=== PATIENT | male | born 1950 | race Caucasian/White ===

== ENCOUNTER → 2017-09-18 | Outpatient (CLI) | payer OTHER | END | disposition home or self-care (01) | LOC: KCIC MRI 10:01 | DX: M75.122 Complete rotator cuff tear or rupture of left shoulder, not specified as traumatic (principal); M75.22 Bicipital tendinitis, left shoulder; M19.012 Primary osteoarthritis, left shoulder; M25.712 Osteophyte, left shoulder; M62.512 Muscle wasting and atrophy, not elsewhere classified, left shoulder; M25.412 Effusion, left shoulder; Z91.81 History of falling | CPT/HCPCS: 73221 ==

== ENCOUNTER → 2018-09-08 | Outpatient (CLI) | payer MEDICAID, OTHER | END | disposition home or self-care (01) | LOC: LAB 09:30 | PROVIDERS: ATTEND Psychiatry & Neurology Neurology with Special Qualifications in Child Neurology | DX: F03.90 Unspecified dementia, unspecified severity, without behavioral disturbance, psychotic disturbance, mood disturbance, and anxiety (principal) | CPT/HCPCS: 36415; 82607; 82746; 84443; 85651 ==

== ENCOUNTER → 2018-09-09 | Outpatient (CLI) | payer MEDICAID, OTHER ==
--- NOTE | 2018-09-09 10:07 | RAD ---
CT HEAD WO CONTRAST Clinical indications: DEMENTIA NO PRIOR Technique: Noncontrast axial cross sectional scanning of the head was performed. PQRS compliance Statement One or more of the following individualized dose reduction techniques were utilized for this study: 1. Automated exposure control 2. Adjustment of the mA and/or kV according to patient size 3. Use of iterative reconstruction technique Findings: No acute intracranial hemorrhage or midline shift or mass-effect or hydrocephalus or extra-axial fluid collection is seen. No focal hypodense area or sulci effacement is seen to indicate an acute infarct or edema radiographically. No significant atrophy is evident given the patient's age. No skull fracture or pneumocephalus is seen. No opacification of the mastoid sinuses or middle ear cavities is seen. There is mild mucosal thickening of the maxillary and ethmoid sinuses bilaterally. The maxillary sinuses are not completely seen in this study. Impression: No acute intracranial abnormality is seen. Electronically signed by: Ian Galvan MD (09/09/2018 10:03 AM) [id number]
== END | disposition home or self-care (01) ==
LOC: CT 14:55
PROVIDERS: ATTEND Psychiatry & Neurology Neurology with Special Qualifications in Child Neurology
DX: F03.90 Unspecified dementia, unspecified severity, without behavioral disturbance, psychotic disturbance, mood disturbance, and anxiety (principal)
CPT/HCPCS: 70450

== ENCOUNTER 2019-12-01 16:19 | Emergency (ER) | payer MEDICAID, OTHER ==
[~2019-12-01] VITALS: Ht 162.6 cm; Wt 64.0 kg
--- NOTE | 2019-12-01 17:03 | PHYS DOC ---
General Adult EDM: Chief Complaint: LACERATION/AVULSION HPI: HPI: Patient is a 69 year old male who presents to the ED today with right forearm laceration, patient reports working with a saw that accidentally cut him. Patient is right-handed. 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 [] Musculoskeletal: Denies back pain or joint pain. [] Integument: Reports right forearm laceration Neurologic: Denies headache, focal weakness or sensory changes. [] Psychiatric: Denies depression or anxiety. [] Heart Score: Risk Factors: Risk Factors: DM, Current or recent (<one month) smoker, HTN, HLP, family history of CAD, obesity. Risk Scores: Score 0 - 3: 2.5% MACE over next 6 weeks - Discharge Home Score 4 - 6: 20.3% MACE over next 6 weeks - Admit for Clinical Observation Score 7 - 10: 72.7% MACE over next 6 weeks - Early Invasive Strategies Physical Exam: PE: Constitutional: Well developed, well nourished, no acute distress, non-toxic appearance. [] Skin: Right forearm with a laceration in L-type orientation approximately 7 centimeters long, there is no obvious tendon involvement, patient able to flex and extend all the fingers on the right hand. Adequate radial, medial, ulnar sensation to the right hand. +2 right radial pulse. Cap refill less than 2 seconds right fingers. Back: No tenderness, no CVA tenderness. [] Extremities: No tenderness, no cyanosis, no clubbing, ROM intact, no edema. [] Neurologic: Alert and oriented X 3, normal motor function, normal sensory function, no focal deficits noted. [] Psychologic: Affect normal, judgement normal, mood normal. [] EKG: EKG: [] Radiology/Procedures: Radiology/Procedures: Laceration/Wound Repair Wound Location: Right forearm Wound's Depth, Shape: L Wound Length (cm): Approximately 7 cm Wound Explored: clean Irrigated w/ Saline (ccs): 100 Betadine Prep?: Y Anesthesia: 1% of buffered lidocaine cream Volume Anesthetic (ccs): Approx. 15cc Wound Repaired With: Vicryl Suture Size/Type: 4.0 Number of Sutures: 2 internal interrupted sutures and 17 external interrupted sutures Progress :wound was covered with non stick dressing Course & Med Decision Making: Course & Med Decision Making Pertinent Labs and Imaging studies reviewed. (See chart for details) This is a 69-year-old male patient with right forearm laceration that was closed by me as noted in procedures, wound care instructions and return precautions provided. Tetanus updated Dragon Disclaimer: Dragon Disclaimer: This electronic medical record was generated, in whole or in part, using a voice recognition dictation system. Departure Departure Impression: Primary Impression: Forearm laceration Qualified Codes: S51.811A - Laceration without foreign body of right forearm, initial encounter Disposition: HOME, SELF-CARE Condition: STABLE Referrals: CECILIO DICKERSON MD (PCP) follow up with with your doctor in 1 week Patient Instructions: Laceration Care, Adult, [id number] Additional Instructions: You have dissolveable sutures, please keep the laceration clean and dry. Monitor the area for signs of infection including increased redness, warmth, yellow drainage from the area and return to the ED if they occur see your own doctor. CHUYITA SCHAFFER APRN Dec 01, 2019 17:03
--- NOTE | 2019-12-01 17:17 | RAD ---
Exam: Right forearm 2 views INDICATION: Laceration, cut by saw TECHNIQUE: Frontal and lateral views of the right forearm Comparisons: None FINDINGS: Bone mineralization is normal. No acute or healed fractures. Soft tissue laceration along the palmar aspect of the mid forearm. Joint spaces are well-maintained. IMPRESSION: Laceration as described above. No underlying osseous abnormality or radiopaque foreign body identified Electronically signed by: Shruthi Castañeda MD (12/01/2019 5:15 PM) [id number]
[2019-12-01] MEDS ORDERED: LIDOCAINE 1% Multi-Dose 20 ML VIAL. INJ ONE (17:30)
[2019-12-01] MEDS ORDERED: DIPH,PERTUSS(ACELL),TET VAC/PF 0.5 ML SYRINGE. VAX IM ONE (17:30)
[2019-12-01 18:37] VITALS: BP 139/66
== END 2019-12-01 19:02 | disposition home or self-care (01) ==
LOC: ER 16:19
DX: S51.811A Laceration without foreign body of right forearm, initial encounter (principal); W26.8XXA Contact with other sharp object(s), not elsewhere classified, initial encounter; Y93.89 Activity, other specified; Y92.89 Other specified places as the place of occurrence of the external cause; Y99.8 Other external cause status
CPT/HCPCS: 12032; 73090; 90471; 90715; 99285; J3490